=== PATIENT | female | born 1940 | race Caucasian/White ===

== ENCOUNTER 2016-02-18 18:08 | Emergency (ER) | payer OTHER ==
--- NOTE | 2016-02-18 19:15 | DIAGNOSTIC IMAGING REPORT ---
PROCEDURE: XR CHEST 2 VIEW INDICATION: GENERALIZED CONFUSION TECHNIQUE: PA and lateral views. COMPARISON: Compared to chest x-ray on 11/10/2012. FINDINGS: Lungs are clear. Heart and mediastinum are normal. There are mild to moderate degenerative changes of the thoracic spine. IMPRESSION: 1. Negative chest.
--- NOTE | 2016-02-18 21:13 | ED NURSING NOTES ---
Clinical Report - Nurses [facility] [address] [place] [address] 02/18/2016 18:09 Patient: EMORY MIRANDA TRIAGE Triage time 1823 PM. Chief Complaint: (confusion, headache, nausea). --18:24 Jordy Walton R.N. 18:16 02/18/16. BP: 174/71. HR: 68. RR: 18. O2 saturation: 97%. Temp: 98.1 F (oral). Pain level now: 10/27. --18:24 Jordy Walton R.N. Alert. No acute distress. HENRY COMA SCORE: Henry Coma Scale: 15- eyes open spontaneously (4); best verbal response- oriented x 4 (5); best motor response- obeys commands (6). --18:24 Jordy Walton R.N. Weight: 90.7 kg estimated. Height/Length: 65 inches Estimated. BMI: 33.3. --21:27 Calli Louis. Medications HumuLIN N Subcutaneous 120units. Hydrocodone-Acetaminophen Oral 5 mg/500 mg, as needed. --18:18 Jordy Walton R.N. Lasix Oral, as needed. Lisinopril Oral 20 mg. Lopressor Oral 150 mg. Procardia Oral 60 mg. --18:18 Jordy Walton R.N. Digoxin Oral. --18:19 Jordy Walton R.N. Potassimin Oral. --19:19 Jordy Walton R.N. Bumetanide Oral. --19:19 Jordy Walton R.N. Spironolactone Oral. --19:19 Jordy Walton R.N. Allergies No Known Drug Allergy. --18:18 Jordy Walton R.N. History Arrived by private vehicle, and accompanied by family. Onset. (about 3 days ago). ( Patient presents to the ED with symptoms of headache and nausea x3 days. Patient states that she was watching the football game today and around the 4th quarter started having trouble "finding my words."). Treatment DIVORCE ATTORNEY: None. SOCIAL HX: Never smoker. FALL RISK ASSESSMENT: Fall risk assessment completed. No fall risk identified. NUTRITIONAL RISK ASSESSMENT: The nutritional risk assessment revealed no deficiencies. FUNCTIONAL ASSESSMENT: Functional assessment: no impairments noted. LEARNING NEEDS ASSESSMENT: The learning needs assessment revealed no barriers. SKIN INTEGRITY ASSESSMENT: Skin integrity risk assessment completed. No skin integrity risk identified. --18:24 Jordy Walton R.N. PROBLEMS: Pneumonia. Changed Mental Status. Chronic ear infections. Hypertension. Diabetes Mellitus. Back Pain. --18:20 Jordy Walton R.N. CVA - Cerebrovascular Accident [RuleOut]. --18:20 Jordy Walton R.N. ADDITIONAL SURGERIES: Back Surgery. Carpal Tunnel Surgery. Hysterectomy. Shoulder Surgery. Vaginal cyst removal. --18:20 Jordy Walton R.N. PHYSICAL ASSESSMENT Ambulatory to room. GENERAL / NEURO / PSYCH: Alert. Oriented X 4. Appears in no acute distress. Decreased awareness. ( confusion, expressive aphasia). HEENT: Pupils equal, round and reactive to light. No facial asymmetry noted. Mucous membranes are pink. RESPIRATORY: Respirations not labored. Chest nontender. Breath sounds within normal limits. CVS: Normal sinus rhythm noted. Capillary refill less than 2 seconds. Pulses within normal limits. GI / : Abdomen soft and nontender and normal bowel sounds. SKIN: Skin intact. Skin is warm and dry. Normal skin turgor. --18:24 Jordy Walton R.N. GENERAL / NEURO / PSYCH: Awake. Oriented X 4. Alert. Speech normal. Mood/affect normal. No cerebellar findings. Moves all extremities equally. No motor deficit. No sensory deficit. NIH Stroke Scale: score 1. Performed at 1816 PM. Level of Consciousness: alert (0). LOC Questions: both (0). LOC Commands: both (0). Best gaze: normal (0). Visual field loss: none (0). Facial palsy: normal (0). Motor arm: no drift right arm (0) and no drift left arm (0). Motor leg: no drift right leg (0) and no drift left leg (0). Limb ataxia: none (0). Sensory loss: none (0). Aphasia: mild to moderate (1). Dysarthria: normal (0). Extinction and inattention: none (0). HEENT: Pupils equal, round and reactive to light. --19:16 Jordy Walton R.N. NURSING PROGRESS NOTES 18:47 02/18/2016 Site #1 started via IV in the right antecubital space with an 18g angiocath; two attempts. Blood drawn: rainbow set. --18:47 Jordy Walton R.N. 18:51 02/18/2016 Zofran (Ondansetron HCl) IVP 4 mg given over 2 minute(s) via site #1. Allergies verified and confirmed 5 rights. IV patency established. IV site checked: no pain, redness, or swelling. IV flushed thoroughly pre- and post-medication administration. IVP given by RN. --18:52 Jordy Walton R.N. ( Patient vomited x1. IV Zofran Administered). --18:52 Jordy Walton R.N. Care transferred and report received (Jordy). --19:15 Calli Louis 19:14 02/18/16. BP: 178/44. HR: 64. RR: 20. O2 saturation: 98%. --19:15 Calli Louis 8 fr in/out catheterization. During procedure hand hygiene observed and sterile equipment and aseptic technique used. She tolerated procedure well. Checked patient name and birthdate: patient confirmed. Instructions provided to collect clean catch urine and patient verbalized understanding urine collected with return of yellow-colored clear urine; odor is normal; sample sent to lab for urinalysis. Specimen labeled in the presence of the patient. Call light placed in reach. Side rails up x 1. --19:18 Jordy Walton R.N. Portable chest x-ray. --19:18 Jordy Walton R.N. 19:22 02/18/2016 Morphine IVP 4 mg given over 1 minute(s) via site #1. Allergies verified, confirmed 5 rights and sedative warning given to the patient and patient's family. IV patency established. IV site checked: no pain, redness, or swelling. IV flushed thoroughly pre- and post-medication administration. IVP given by RN. --19:22 Calli Louis 19:34 02/18/16. ( Patient oxygen down to 86% on RA. 2 Liters of oxygen applied. Patient reports a decrease in headache and nausea. Patient having some difficulty finding appropriate words when speaking. Provider aware of patient condition. Patient and family have no complaints at this time.). --19:34 Calli Louis 20:08 02/18/16. BP: 146/55. HR: 65. RR: 20. O2 saturation: 100% on nasal cannula at 2 liters/minute. Pain level now: 08/26. --20:09 Calli Louis ( Patient states headaches is coming back). --20:09 Calli Louis 20:21 02/18/2016 Benadryl (DiphenhydrAMINE HCl) IVP 25 mg given over 1 minute(s) via site #1. Allergies verified, confirmed 5 rights and sedative warning given to the patient and patient's family. IV patency established. IV site checked: no pain, redness, or swelling. IV flushed thoroughly pre- and post-medication administration. IVP given by RN. --20:21 Calli Louis 20:21 02/18/2016 Toradol IVP 30 mg given over 1 minute(s) via site #1. Allergies verified and confirmed 5 rights. IV patency established. IV site checked: no pain, redness, or swelling. IV flushed thoroughly pre- and post-medication administration. IVP given by RN. --20:21 Calli Louis Reassessment after medication administered. ( Patient feeling somewhat better.). --20:59 Calli Louis 20:58 02/18/16. BP: 172/58. HR: 59. RR: 20. O2 saturation: 100% on nasal cannula at 2 liters/minute. Pain level now: 07/27. --20:59 Calli Louis. DISPOSITION / DISCHARGE 21:20 02/18/16. BP: 161/55. HR: 65. RR: 20. O2 saturation: 100% on room air. Temp: 97.9 F (oral). Pain level now: 07/27. --21:22 Calli Louis 21:17 02/18/2016 Site #1 removed upon discharge. Catheter intact. Bandaid applied. --21:22 Calli Louis 21:22 02/18/16. Condition at departure: stable. No learning barriers present. Discharge instructions provided and reviewed with the patient and family. Reviewed warnings (No driving while taking sedative medications). Reviewed medication(s) side effects, precautions, dosing and course information. Prescription(s) given to the patient. Reviewed diet. Patient and family verbalized understanding. Written instructions provided in [place]. ( Follow up with PCP in three days. Reviewed stroke type symptoms with patient and family. Advised them to return if any symptoms appear.). The patient was discharged by the physician. She was discharged home and accompanied by family. She left the Emergency Department ambulatory and via private vehicle. Family member driving. --:22 Calli Louis. Locked/Released at 02/18/2016 21:28 by Calli Louis,
--- NOTE | 2016-02-18 21:13 | ED CLINICAL REPORT ---
Clinical Report - Physicians/Mid Levels [facility] [address] [place] [address] 02/18/2016 18:09 Patient: EMORY MIRANDA Arrived- By ambulance. Historian- patient. HISTORY OF PRESENT ILLNESS Chief Complaint: CHANGED MENTAL STATUS. This started 3 days ago, is still present and patient was last known well (3 days ago). The patient has been confused. (headache). The patient was not found unresponsive. No alcohol recently or recent drug use. No weakness, numbness or recent fall. No difficulty walking. Usually is alert and oriented X3 and usually has normal mobility. Similar symptoms previously: None. Recent medical care: Not recently seen/assessed. REVIEW OF SYSTEMS No fever, head injury, dizziness, blurred vision or sore throat. No abdominal pain or skin rash. She has had a headache. All systems otherwise negative, except as recorded above. PAST HISTORY See nurses notes. Medications: Spironolactone Oral. Bumetanide Oral. Potassimin Oral. Digoxin Oral. Lasix Oral, as needed. Lisinopril Oral 20 mg. Lopressor Oral 150 mg. Procardia Oral 60 mg. HumuLIN N Subcutaneous 120units. Hydrocodone-Acetaminophen Oral 5 mg/500 mg, as needed. Allergies: No Known Drug Allergy. SOCIAL HISTORY Never smoker. No alcohol use or drug use. Is a local resident. FAMILY HISTORY Negative. ADDITIONAL NOTES The nursing notes have been reviewed. PHYSICAL EXAM Vital Signs: 02/18/2016 18:16 BP: 174/71. HR: 68. RR: 18. O2 saturation: 97%. Temp: 98.1 F. Pain level now: 9/10. Blood pressure normal. Oxygen saturation normal. Appearance: Alert. No acute distress. Head: Head atraumatic. Eyes: Pupils equal, round and reactive to light. ENT: Normal ENT inspection. Airway intact. Moist mucous membranes. Pharynx normal. Neck: Normal inspection. Neck supple. No meningeal signs. CVS: Normal heart rate and rhythm. Heart sounds normal. Pulses normal. Respiratory: No respiratory distress. Breath sounds normal. Abdomen: Soft and nontender. Back: Normal inspection. Skin: Skin warm and dry. Normal skin color. No rash. Normal skin turgor. Extremities: Extremities exhibit normal ROM. No lower extremity edema. Neuro: Alert. Oriented X 3. No alteration in mental status. Not disoriented. Alertness is not decreased. No aphasia. Mood/affect normal. Speech normal. No dysphasia or dysarthria. Cranial nerves normal (as tested). No cerebellar findings. No motor deficit. No sensory deficit. Reflexes normal. (normal finger to nose and heel to wick). LABS, X-RAYS, AND EKG Chest X-ray: Normal lung markings present. Normal heart size. No infiltrate. Views: PA and lateral. The X-rays were independently viewed by me and interpreted contemporaneously by me. Laboratory Tests: UA-Culture if indicated: (GUSTAVO: 02/18/2016 19:08) ( MsgRcvd 02/18/2016 19:33) Final results Test Result Flag Units (Reference) URINE COLOR YELLOW URINE APPEARANCE CLEAR URINE GLUCOSE TRACE (NEGATIVE) URINE BILIRUBIN NEGATIVE (NEGATIVE) URINE KETONE NEGATIVE (NEGATIVE) URINE SPECIFIC GRAVITY >= 1.030 (1.010-1.030) URINE PH 5.5 (5.0-8.0) URINE PROTEIN 1+ (NEGATIVE) URINE UROBILINOGEN 0.2 EU/dL (0.2-1.0) URINE NITRITE NEGATIVE (NEGATIVE) URINE BLOOD TRACE-INTACT (NEGATIVE) URINE LEUK ESTERASE NEGATIVE (NEGATIVE) URINE RBC 1-3 rbc/hpf (0-1) URINE WBC 1-3 wbc/hpf (0-1) URINE EPITHELIAL CELLS 3-5 EPI/hpf (0-5) URINE BACTERIA MODERATE (2+ TO 3+) (NONE SEEN) URINE COMMENT CULTURE INDICATED 2+ AMORPHOUSURINE CULTURES ARE SET-UP BASED ON THE FOLLOWING CRITERIA:POSITIVE NITRITEPOSITIVE LEUKOCYTE ESTERASEGREATER THAN 10 WHITE BLOOD CELLSMODERATE (2+) OR GREATER BACTERIA CBC w Diff: (GUSTAVO: 02/18/2016 18:26) ( MsgRcvd 02/18/2016 19:11) Final results Test Result Flag Units (Reference) WHITE BLOOD COUNT 17.2 H K/uL (4.5-11.5) RED BLOOD COUNT 5.45 H M/uL (4.00-5.20) HEMOGLOBIN 15.4 gm/dL (12.0-16.0) HEMATOCRIT 46.4 H % (36.0-46.0) MEAN CELL VOLUME 85 fL (80-100) MEAN CORPUSCULAR HGB 28 pg (26-34) MEAN CORPUSCULAR HGB CONC 33 g/dL (31-37) RED CELL DISTRIBUTION WIDTH 13.0 % (11.6-14.8) PLATELET COUNT 247 K/uL (150-400) NEUTROPHIL % 77.1 H % (50-75) LYMPH % 16.1 L % (25-40) MONO % 4.9 % (3-14) EOSINOPHIL % 1.7 % (0-4) BASOPHIL % 0.2 % (0-2) PT with INR: (GUSTAVO: 02/18/2016 18:26) ( [facility] 02/18/2016 18:49) Final results Test Result Flag Units (Reference) INR 0.9 (0.8-1.2) Low Intensity Therapy: INR 1.5-2.0 PT range 18.5-23.1Mod.Intensity Therapy: INR 2.0-3.0 PT range 23.1-31.5High Intensity Therapy: INR 2.5-3.5 PT range 27.4-35.5High Intensity Therapy 2: INR 3.0-4.0 PT range 31.5-39.3 Digoxin Level: (GUSTAVO: 02/18/2016 18:20) ( [facility] 02/18/2016 20:03) Final results Test Result Flag Units (Reference) DIGOXIN 1.2 ng/mL (0.9-2.0) CMP: (GUSTAVO: 02/18/2016 18:26) ( [facility] 02/18/2016 18:53) Final results Test Result Flag Units (Reference) GLUCOSE 184 H mg/dL (70-110) BUN 20 H mg/dL (7-18) CREATININE 1.0 mg/dL (0.6-1.3) Estimated GFR 57.76 mL/min Estimated GFR- >60 mL/min Note: Persistent reduction over 3 months in eGFR<60 mL/min/1.73 m2 defines CKD. Patients with eGFR values>=60 mL/min/1.73 m2 may also have CKD if evidence ofpersistent proteinuria. Additional information may be foundat www.kidney.org. SODIUM 138 mmol/L (136-145) POTASSIUM 4.4 mmol/L (3.5-5.1) CHLORIDE 101 mmol/L (98-107) CARBON DIOXIDE 28 mmol/L (21-32) CALCIUM 9.3 mg/dL (8.5-10.1) TOTAL PROTEIN 7.5 g/dL (6.4-8.2) ALBUMIN 3.5 g/dL (3.3-5.0) BILIRUBIN, TOTAL 0.5 mg/dL (0.0-1.0) ALKALINE PHOSPHATASE 93 U/L (46-116) AST (SGOT) 21 U/L (15-37) ALT (SGPT) 25 U/L (12-78) LIPASE 56 L U/L (73-393) Culture, Urine: (GUSTAVO: 02/18/2016 19:08) ( MsgRcvd 02/20/2016 11:54) Final results Test Result Flag Units (Reference) CULTURE, URINE DATE: 02/20/16 NO GROWTH AT:: NO GROWTH AT 2 DAYS PRELIM REPORT: FINAL REPORT . PROGRESS AND PROCEDURES Course of Care: the patient is a 75 yo female presenting for evaluation of 3 days of headache and difficulty finding words. Patient is in no acute distress. Neuro exam is completely non-focal on my examination. Patient without difficulty naming objects and is A X O x 4. Will evaluation for possible causes for symptoms including metabolic or infectious etiologies. Do not feel patient had a recent stroke. Do not feel work up for stroke warranted at this time. Patient's work up shows no acute abnormalities. she is speaking in fluid sentences and is in no acute distress. Patient with headache and medications provided given unremarkable workup. Do not feel patient has increased ICP, mass, or SAH. UA with epithelial cells. likely bacteria on UA contaminate. WIll await cultures. Patient reevaluated after work up. Patient states she feels much better and is comfortable returning home. DO not feel patient needs to be admitted or require further ED work up. Patient is in no acute distress, is non-toxic, and has a normal exam. Discussed with patient work up, diagnosis, home care, follow up, and return precautions. All questions answered. Patient expressed understanding of these instructions and was agreeable to them. Not completed after cultures from UA returned. NO growth. Do not feel patient has UA. Disposition: Discharged. Condition: good. CLINICAL IMPRESSION Acute mental status change with confusion. Acute headache (frontal). Mild leukocytosis. INSTRUCTIONS Warnings: GENERAL WARNINGS: Return or contact your physician immediately if your condition worsens or changes unexpectedly, if not improving as expected, or if other problems arise. Specifically return if pain, vomiting, bleeding, breathing difficulty or fever. Your Current Medications: CONTINUE TAKING THE FOLLOWING MEDICATIONS: Bumetanide Oral. Digoxin Oral. HumuLIN N Subcutaneous : 120units. Hydrocodone-Acetaminophen Oral : 5 mg/500 mg, prn. Lasix Oral : prn. Lisinopril Oral : 20 mg. Lopressor Oral : 150 mg. Potassimin Oral. Procardia Oral : 60 mg. Spironolactone Oral. Prescription Medications: Tramadol 50 mg: take 1 orally every 8 hours as needed for pain. Dispense twenty (20). No refills. Zofran ODT 4 mg: take 1 orally every 8 hours as needed for nausea and vomiting. Dispense ten (10). No refill. Substitution is permissible. Fioricet: take 1 orally every 6 hours as needed for pain or headache. Dispense twenty (20). No refills. Substitution is permissible. Follow-up: Return to the emergency department as needed. Follow up with your doctor in three days. Reason for referral: recheck today's concerns. Summary of care provided to patient and family via paper. Screening today revealed the patient's blood pressure to be in the normal range. The patient should follow up with a primary care provider for blood pressure management. Understanding of the discharge instructions verbalized by patient. (Electronically signed by Henry Parada Dr. 02/24/2016 15:18)
--- NOTE | 2016-02-18 21:13 | ED ORDER SUMMARY ---
..... Patient: EMORY MIRANDA OrderSheet [facility] VisitID: [id number] [place] [address] 75y, F Registration Date/Time: 02/18/2016 ORDER SHEET Weight: 90.7 kg (estimated) Allergies: No Known Drug Allergy GENERAL ORDERS: Chest 2V Urgent (18:31 02/18/2016 Chelo Morales) (Ack 18:37 NHouse ER Tech1) (18:46 Harsha) CBC w Diff Urgent (18:32 02/18/2016 Chelo Morales) (Ack 18:37 NHouse ER Tech1) (18:47 HOShaughnessy R.N.) CMP Urgent (18:32 02/18/2016 Chelo Morales) (Ack 18:37 NHouse ER Tech1) (18:47 HOShaughnessy R.N.) UA-Culture if indicated Urgent (18:32 02/18/2016 Chelo Morales) (Ack 18:37 NHouse ER Tech1) (20:01 HSoule) PT with INR Urgent (18:32 02/18/2016 Chelo Morales) (Ack 18:37 NHouse ER Tech1) (18:47 HOShaughnessy R.N.) Lipase Urgent (18:32 02/18/2016 Chelo Morales) (Ack 18:37 NHouse ER Tech1) (18:47 HOShaughnessy R.N.) Pulse oximeter (18:32 02/18/2016 Chelo Morales) (19:12 HSoule) Digoxin Level Urgent (19:43 02/18/2016 Chelo Morales) (Ack 19:45 NHouse ER Tech1) (19:45 NHouse ER Tech1) MEDICATION ORDERS: Phenergan IV 25 mg (HIGH ALERT MEDICATION, NOW) (20:10 02/18/2016 Chelo Morales) (Hold 20:20 HSoule) (Cancelled: Patient [id number] HSoule) IV FLUIDS: Morphine IV 4 mg (HIGH ALERT MEDICATION, NOW) (18:31 02/18/2016 Chelo Morales) (Ack 19:14 HSoule) (19:22 HSoule) Zofran IV 4 mg (NOW) (18:31 02/18/2016 Chelo Morales) (18:52 HOShaughmahi R.N.) IV Saline Lock (18:32 02/18/2016 Chelo Morales) (18:47 HOSkhurram R.N.) Benadryl IV 25 mg (NOW) (20:11 02/18/2016 Chelo Morales) (20:21 HSoule) Toradol IV 30 mg (NOW) (20:11 02/18/2016 Chelo Morales) (20:21 HSoule) ORDER SHEET NOTES: [Electronically signed by Calli Louis (21:28 02/18/2016)] [Electronically signed by Henry Parada Dr. (15:18 02/24/2016)] [Electronically locked/signed by Calli Louis (21:28 02/18/2016)]
--- NOTE | 2016-02-18 21:13 | ED ORDER SUMMARY ---
..... Patient: EMORY MIRANDA OrderSheet [facility] VisitID: [id number] [place] [address] 75y, F Registration Date/Time: 02/18/2016 ORDER SHEET Weight: 90.7 kg (estimated) Allergies: No Known Drug Allergy GENERAL ORDERS: Chest 2V Urgent (18:31 02/18/2016 Chelo Morales) (Ack 18:37 NHouse ER Tech1) (18:46 Harsha) CBC w Diff Urgent (18:32 02/18/2016 Chelo Morales) (Ack 18:37 NHouse ER Tech1) (18:47 HOShaughnessy R.N.) CMP Urgent (18:32 02/18/2016 Chelo Morales) (Ack 18:37 NHouse ER Tech1) (18:47 HOShaughnessy R.N.) UA-Culture if indicated Urgent (18:32 02/18/2016 Chelo Morales) (Ack 18:37 NHouse ER Tech1) (20:01 HSoule) PT with INR Urgent (18:32 02/18/2016 Chelo Morales) (Ack 18:37 NHouse ER Tech1) (18:47 HOShaughnessy R.N.) Lipase Urgent (18:32 02/18/2016 Chelo Morales) (Ack 18:37 NHouse ER Tech1) (18:47 HOShaughnessy R.N.) Pulse oximeter (18:32 02/18/2016 Chelo Morales) (19:12 HSoule) Digoxin Level Urgent (19:43 02/18/2016 Chelo Morales) (Ack 19:45 NHouse ER Tech1) (19:45 NHouse ER Tech1) MEDICATION ORDERS: Phenergan IV 25 mg (HIGH ALERT MEDICATION, NOW) (20:10 02/18/2016 Chelo Morales) (Hold 20:20 HSoule) (Cancelled: Patient [id number] HSoule) IV FLUIDS: Morphine IV 4 mg (HIGH ALERT MEDICATION, NOW) (18:31 02/18/2016 Chelo Morales) (Ack 19:14 HSoule) (19:22 HSoule) Zofran IV 4 mg (NOW) (18:31 02/18/2016 Chelo Morales) (18:52 HOShaughmahi R.N.) IV Saline Lock (18:32 02/18/2016 Chelo Morales) (18:47 HOSkhurram R.N.) Benadryl IV 25 mg (NOW) (20:11 02/18/2016 Chelo Morales) (20:21 HSoule) Toradol IV 30 mg (NOW) (20:11 02/18/2016 Chelo Morales) (20:21 HSoule) ORDER SHEET NOTES: [Electronically signed by Calli Louis (21:28 02/18/2016)] [Electronically signed by Henry Parada Dr. (15:18 02/24/2016)] [Electronically locked/signed by Calli Louis (21:28 02/18/2016)]
--- NOTE | 2016-02-24 15:18 | ED DISCHARGE INSTRUCTIONS ---
Patient: EMORY MIRANDA General Instructions [facility] VisitID: [id number] [place] [address] 75y, F Registration Date/Time: 02/18/2016 Acute mental status change with confusion. Acute headache (frontal). Mild leukocytosis. INSTRUCTIONS Warnings: GENERAL WARNINGS: Return or contact your physician immediately if your condition worsens or changes unexpectedly, if not improving as expected, or if other problems arise. Specifically return if pain, vomiting, bleeding, breathing difficulty or fever. Your Current Medications: CONTINUE TAKING THE FOLLOWING MEDICATIONS: Bumetanide Oral. Digoxin Oral. HumuLIN N Subcutaneous : 120units. Hydrocodone-Acetaminophen Oral : 5 mg/500 mg, prn. Lasix Oral : prn. Lisinopril Oral : 20 mg. Lopressor Oral : 150 mg. Potassimin Oral. Procardia Oral : 60 mg. Spironolactone Oral. Prescription Medications: Tramadol 50 mg: take 1 orally every 8 hours as needed for pain. Dispense twenty (20). No refills. Zofran ODT 4 mg: take 1 orally every 8 hours as needed for nausea and vomiting. Dispense ten (10). No refill. Substitution is permissible. Fioricet: take 1 orally every 6 hours as needed for pain or headache. Dispense twenty (20). No refills. Substitution is permissible. Follow-up: Return to the emergency department as needed. Follow up with your doctor in three days. Reason for referral: recheck today's concerns. Summary of care provided to patient and family via paper. Screening today revealed the patient's blood pressure to be in the normal range. The patient should follow up with a primary care provider for blood pressure management. Understanding of the discharge instructions verbalized by patient. ADDITIONAL INFORMATION Confusion Confusion is a change in a persons ability to think clearly. There may be trouble recognizing familiar people and places, or knowing what day it is. Memory, judgement and decision-making may also be affected. In severe cases there may be limited or no response to verbal commands. Confusion may occur suddenly or develop gradually over time. There are many injuries and medical conditions that can cause this problem. These include brain injury, side effect of medication, intoxication, withdrawal from drugs, infection, stroke, dementia,mental illness and other causes. The exam and testing today did not show the cause of this problem. Further testing will be needed. Specific treatment and hope for recovery depend on the cause of this symptom. Home Care: Be sure someone is with the confused person at all times. He/she should not be left alone or unsupervised. Keep medicines (prescription and [id number]) in a secure place, under the caregivers control. A person with confusion should not be allowed to take their own medicines.This needs to be supervised by the caregiver. Ways to help a person with confusion: Activities:Establish a daily routine. Change can be a source of stress for someone with confusion. Make a time schedule for common tasks such as: bathing, dressing, taking medicines, meals, going for walks, shopping, naps and bed time. Communication:Speak slowly and clearly with a gentle tone of voice. Use short simple words and sentences. Ask one question at a time. Do not interrupt, criticize or argue. Be calm and supportive. Use friendly facial expressions. Use pointing and touching to help communicate. If there has been loss of long-term memory, do not ask questions about past events. This would only cause frustration for the person. Behavioral tips:Use lists, signs, family photos, clocks and calendars as memory aids. Label cabinets and drawers. Try to distract, not confront, the patient. When he/she becomes frustrated or upset, redirect his/her attention to eating or some other activity of interest. Medical-Legal tips: If this proves to be a permanent condition, talk to your doctor and/or caterer helper about getting a Power of In House Cra for health care and for financial decisions. It is best to do this while the person can still sign legal documents and make his/yared own legal decisions. Otherwise, a court order will be required. Follow-Up with the patients doctor or as advised by our staff for further testing. Get Prompt Medical Attention if any of the following occur: Frequent falling Refusal to eat or drink Violent behavior or behavior becomes too difficult to manage at home Increased drowsiness, or failure to respond normally Increasing headache, nausea or repeated vomiting Numbness or weakness of the face, one arm or one leg Slurred speech, trouble speaking, walking or seeing Fainting spell, dizziness or seizure Unexplained fever over 100.4 F (38.0 C) oral Headache [Unspecified] The cause of your headache today is not clear, but it does not appear to be the sign of any serious illness. Under stress, some people tense the muscles of their shoulder, neck and scalp without knowing it. If this condition lasts long enough, a TENSION HEADACHE can occur. A MIGRAINE HEADACHE is caused by changes in blood flow to the brain. A migraine attack may be triggered by emotional stress, hormone changes during the menstrual cycle, oral contraceptives, alcohol use, certain foods containing tyramine, eye strain, weather changes, missing meals, lack of sleep or oversleeping. Other causes of headache include a viral illness with high fever, head injury with concussion, sinus, ear or throat infection, dental pain and TMJ (jaw joint) pain. More serious but less common causes of headache include stroke, brain hemorrhage, brain tumor, meningitis and encephalitis. Home Care: If you were given pain medicine for this headache, do not drive yourself home. Arrange for a ride, instead. When you get home, try to sleep. You should feel much better when you wake up. Apply heat to the back of your neck to relieve neck muscle spasm. Migraine headaches may respond best to an ice pack on the forehead or at the base of the skull. If you are having nausea or vomiting, follow a light diet until your headache is relieved. If you have a migraine type headache, use sunglasses when in the daylight or around bright indoor lighting until symptoms improve. Bright glaring light can worsen this kind of headache. Follow Up with your doctor if the headache is not better within the next 24 hours. If you have frequent headaches you should discuss a treatment plan with your primary care doctor. By being aware of the earliest signs of headache, and starting treatment right away, you may be able to stop the pain yourself. Get Prompt Medical Attention if any of the following occur: Worsening of your head pain or no improvement within 24 hours Repeated vomiting (unable to keep liquids down) Fever of 100.4F (38C) or higher, or as directed by your healthcare provider Stiff neck Extreme drowsiness, confusion or fainting Dizziness, vertigo (dizziness with spinning sensation) Weakness of an arm or leg or one side of the face Difficulty with speech or vision Tramadol Hydrochloride Oral tablet What is this medicine? TRAMADOL (TRA ma dole) is a pain reliever. It is used to treat moderate to severe pain in adults. How should I use this medicine? Take this medicine by mouth with a full glass of water. Follow the directions on the prescription label. If the medicine upsets your stomach, take it with food or milk. Do not take more medicine than you are told to take. Talk to your application development consultant regarding the use of this medicine in children. Special care may be needed. What side effects may I notice from receiving this medicine? Side effects that you should report to your doctor or health rn coronary care unit as soon as possible: allergic reactions like skin rash, itching or hives, swelling of the face, lips, or tongue breathing difficulties, wheezing confusion itching light headedness or fainting spells redness, blistering, peeling or loosening of the skin, including inside the mouth seizures Side effects that usually do not require medical attention (report to your doctor or health rn coronary care unit if they continue or are bothersome): constipation dizziness drowsiness headache nausea, vomiting What may interact with this medicine? Do not take this medicine with any of the following medications: MAOIs like Carbex, Eldepryl, Marplan, Nardil, and Parnate This medicine may also interact with the following medications: alcohol or medicines that contain alcohol antihistamines benzodiazepines bupropion carbamazepine or oxcarbazepine clozapine cyclobenzaprine digoxin furazolidone linezolid medicines for depression, anxiety, or psychotic disturbances medicines for migraine headache like almotriptan, eletriptan, frovatriptan, naratriptan, rizatriptan, sumatriptan, zolmitriptan medicines for pain like pentazocine, buprenorphine, butorphanol, meperidine, nalbuphine, and propoxyphene medicines for sleep muscle relaxants naltrexone phenobarbital phenothiazines like perphenazine, thioridazine, chlorpromazine, mesoridazine, fluphenazine, prochlorperazine, promazine, and trifluoperazine procarbazine warfarin What if I miss a dose? If you miss a dose, take it as soon as you can. If it is almost time for your next dose, take only that dose. Do not take double or extra doses. Where should I keep my medicine? Keep out of the reach of children. Store at room temperature between 15 and 30 degrees C (59 and 86 degrees F). Keep container tightly closed. Throw away any unused medicine after the expiration date. What should I tell my health care provider before I take this medicine? They need to know if you have any of these conditions: brain tumor depression drug abuse or addiction head injury if you frequently drink alcohol containing drinks kidney disease or trouble passing urine liver disease lung disease, asthma, or breathing problems seizures or epilepsy suicidal thoughts, plans, or attempt; a previous suicide attempt by you or a family member an unusual or allergic reaction to tramadol, codeine, other medicines, foods, dyes, or preservatives or trying to get breast-feeding What should I watch for while using this medicine? Tell your doctor or health rn coronary care unit if your pain does not go away, if it gets worse, or if you have new or a different type of pain. You may develop tolerance to the medicine. Tolerance means that you will need a higher dose of the medicine for pain relief. Tolerance is normal and is expected if you take this medicine for a long time. Do not suddenly stop taking your medicine because you may develop a severe reaction. Your body becomes used to the medicine. This does NOT mean you are addicted. Addiction is a behavior related to getting and using a drug for a non-medical reason. If you have pain, you have a medical reason to take pain medicine. Your doctor will tell you how much medicine to take. If your doctor wants you to stop the medicine, the dose will be slowly lowered over time to avoid any side effects. You may get drowsy or dizzy. Do not drive, use machinery, or do anything that needs mental alertness until you know how this medicine affects you. Do not stand or sit up quickly, especially if you are an older patient. This reduces the risk of dizzy or fainting spells. Alcohol can increase or decrease the effects of this medicine. Avoid alcoholic drinks. You may have constipation. Try to have a bowel movement at least every 2 to 3 days. If you do not have a bowel movement for 3 days, call your doctor or health rn coronary care unit. Your mouth may get dry. Chewing sugarless gum or sucking hard candy, and drinking plenty of water may help. Contact your doctor if the problem does not go away or is severe. Ondansetron Oral disintegrating tablet What is this medicine? ONDANSETRON (on DELL se barb) is used to treat nausea and vomiting caused by chemotherapy. It is also used to prevent or treat nausea and vomiting after surgery. How should I use this medicine? These tablets are made to dissolve in the mouth. Do not try to push the tablet through the foil backing. With dry hands, peel away the foil backing and gently remove the tablet. Place the tablet in the mouth and allow it to dissolve, then swallow. While you may take these tablets with water, it is not necessary to do so. Talk to your application development consultant regarding the use of this medicine in children. Special care may be needed. What side effects may I notice from receiving this medicine? Side effects that you should report to your doctor or health rn coronary care unit as soon as possible: allergic reactions like skin rash, itching or hives, swelling of the face, lips, or tongue breathing problems dizziness fast or irregular heartbeat feeling faint or lightheaded, falls fever and chills swelling of the hands and feet tightness in the chest Side effects that usually do not require medical attention (report to your doctor or health rn coronary care unit if they continue or are bothersome): constipation or diarrhea headache What may interact with this medicine? Do not take this medicine with any of the following medications: -apomorphine -cisapride -dofetilide -dronedarone -pimozide -thioridazine -ziprasidone This medicine may also interact with the following medications: -carbamazepine -phenytoin -rifampicin -tramadol -other medicines that prolong the QT interval (cause an abnormal heart rhythm) What if I miss a dose? If you miss a dose, take it as soon as you can. If it is almost time for your next dose, take only that dose. Do not take double or extra doses. Where should I keep my medicine? Keep out of the reach of children. Store between 2 and 30 degrees C (36 and 86 degrees F). Throw away any unused medicine after the expiration date. What should I tell my health care provider before I take this medicine? They need to know if you have any of these conditions: heart disease history of irregular heartbeat liver disease low levels of magnesium or potassium in the blood an unusual or allergic reaction to ondansetron, granisetron, other medicines, foods, dyes, or preservatives or trying to get breast-feeding What should I watch for while using this medicine? Check with your doctor or health rn coronary care unit as soon as you can if you have any sign of an allergic reaction. Butalbital, Acetaminophen, Caffeine Oral tablet What is this medicine? ACETAMINOPHEN; BUTALBITAL; CAFFEINE (a set a PJ mayra fen; byoo DELMER bi delmer; KAF een) is a pain reliever. It is used to treat tension headaches. How should I use this medicine? Take this medicine by mouth with a full glass of water. Follow the directions on the prescription label. If the medicine upsets your stomach, take the medicine with food or milk. Do not take more than you are told to take. Talk to your application development consultant regarding the use of this medicine in children. Special care may be needed. What side effects may I notice from receiving this medicine? Side effects that you should report to your doctor or health rn coronary care unit as soon as possible: allergic reactions like skin rash, itching or hives, swelling of the face, lips, or tongue breathing problems confusion feeling faint or lightheaded, falls redness, blistering, peeling or loosening of the skin, including inside the mouth seizure stomach pain yellowing of the eyes or skin Side effects that usually do not require medical attention (report to your doctor or health rn coronary care unit if they continue or are bothersome): constipation nausea, vomiting What may interact with this medicine? alcohol or medicines that contain alcohol antidepressants, especially MAOIs like isocarboxazid, phenelzine, tranylcypromine, and selegiline antihistamines benzodiazepines carbamazepine isoniazid medicines for pain like pentazocine, buprenorphine, butorphanol, nalbuphine, tramadol, and propoxyphene muscle relaxants naltrexone phenobarbital, phenytoin, and fosphenytoin phenothiazines like perphenazine, thioridazine, chlorpromazine, mesoridazine, fluphenazine, prochlorperazine, promazine, and trifluoperazine voriconazole What if I miss a dose? If you miss a dose, take it as soon as you can. If it is almost time for your next dose, take only that dose. Do not take double or extra doses. Where should I keep my medicine? Keep out of the reach of children. This medicine can be abused. Keep your medicine in a safe place to protect it from theft. Do not share this medicine with anyone. Selling or giving away this medicine is dangerous and against the law. Store at room temperature between 15 and 30 degrees C (59 and 86 degrees F). Keep container tightly closed. Protect from light. Throw away any unused medicine after the expiration date. What should I tell my health care provider before I take this medicine? They need to know if you have any of these conditions: drink more than 3 alcohol-containing drinks per day drug abuse or addiction heart or circulation problems kidney disease or problems going to the bathroom liver disease lung disease, asthma, or breathing problems porphyria an unusual or allergic reaction to acetaminophen, butalbital or other barbiturates, caffeine, other medicines, foods, dyes, or preservatives or trying to get breast-feeding What should I watch for while using this medicine? Tell your doctor or health rn coronary care unit if your pain does not go away, if it gets worse, or if you have new or a different type of pain. You may develop tolerance to the medicine. Tolerance means that you will need a higher dose of the medicine for pain relief. Tolerance is normal and is expected if you take the medicine for a long time. Do not suddenly stop taking your medicine because you may develop a severe reaction. Your body becomes used to the medicine. This does NOT mean you are addicted. Addiction is a behavior related to getting and using a drug for a non-medical reason. If you have pain, you have a medical reason to take pain medicine. Your doctor will tell you how much medicine to take. If your doctor wants you to stop the medicine, the dose will be slowly lowered over time to avoid any side effects. You may get drowsy or dizzy when you first start taking the medicine or change doses. Do not drive, use machinery, or do anything that may be dangerous until you know how the medicine affects you. Stand or sit up slowly. Do not take other medicines that contain acetaminophen with this medicine. Always read labels carefully. If you have questions, ask your doctor or pharmacist. If you take too much acetaminophen get medical help right away. Too much acetaminophen can be very dangerous and cause liver damage. Even if you do not have symptoms, it is important to get help right away. You have been given the following additional information: Confusion Headache, Unspecified Tramadol Hydrochloride Oral tablet Ondansetron Oral disintegrating tablet Butalbital, Acetaminophen, Caffeine Oral tablet (Electronically signed by Henry Parada Dr. 02/24/2016 15:18)
--- NOTE | 2016-02-24 15:18 | ED MAR SUMMARY ---
..... Medication Administration Record [facility] [address] [place] [address] Patient: EMORY MIRANDA Visit ID: [id number] 75y, F Weight: 90.7 kg Height/Length: 65 in BMI: 33.3 ALLERGIES: No Known Drug Allergy Given 18:51 02/18/2016 Jordy Walton R.N. Medication Administered: ZOFRAN [IVP] (ONDANSETRON HCL), Dose: 4 mg IVP over 2 minute(s), Site: #1 right AC. Medication Ordered: Zofran IV 4 mg (NOW). Given 19:22 02/18/2016 Calli Louis, Medication Administered: MORPHINE [IVP], Dose: 4 mg IVP over 1 minute(s), Site: #1 right AC. Medication Ordered: Morphine IV 4 mg (HIGH ALERT MEDICATION, NOW). Given :02/18/2016 Calli Louis, Medication Administered: BENADRYL [IVP] (DIPHENHYDRAMINE HCL), Dose: 25 mg IVP over 1 minute(s), Site: #1 right AC. Medication Ordered: Benadryl IV 25 mg (NOW). Given :02/18/2016 Calli Louis, Medication Administered: TORADOL [IVP], Dose: 30 mg IVP over 1 minute(s), Site: #1 right AC. Medication Ordered: Toradol IV 30 mg (NOW).
--- NOTE | 2016-02-24 15:18 | ED MAR SUMMARY ---
..... Medication Administration Record [facility] [address] [place] [address] Patient: EMORY MIRANDA Visit ID: [id number] 75y, F Weight: 90.7 kg Height/Length: 65 in BMI: 33.3 ALLERGIES: No Known Drug Allergy Given 18:51 02/18/2016 Jordy Walton R.N. Medication Administered: ZOFRAN [IVP] (ONDANSETRON HCL), Dose: 4 mg IVP over 2 minute(s), Site: #1 right AC. Medication Ordered: Zofran IV 4 mg (NOW). Given 19:22 02/18/2016 Calli Louis, Medication Administered: MORPHINE [IVP], Dose: 4 mg IVP over 1 minute(s), Site: #1 right AC. Medication Ordered: Morphine IV 4 mg (HIGH ALERT MEDICATION, NOW). Given :02/18/2016 Calli Louis, Medication Administered: BENADRYL [IVP] (DIPHENHYDRAMINE HCL), Dose: 25 mg IVP over 1 minute(s), Site: #1 right AC. Medication Ordered: Benadryl IV 25 mg (NOW). Given :02/18/2016 Calli Louis, Medication Administered: TORADOL [IVP], Dose: 30 mg IVP over 1 minute(s), Site: #1 right AC. Medication Ordered: Toradol IV 30 mg (NOW).
--- NOTE | 2016-02-24 15:18 | ED MED RECONCILIATION SUMMARY ---
Patient: EMORY MIRANDA Medication Reconciliation Report [facility] VisitID: [id number] [place] [address] 75y, F Registration Date/Time: 02/18/2016 Weight: 90.7 kg Height/Length: 65 in. BMI: 33.3 ALLERGIES: No Known Drug Allergy The patient's Home Medications are listed below: CONTINUE TAKING THE FOLLOWING MEDICATIONS: Bumetanide Oral Digoxin Oral HumuLIN N Subcutaneous 120units Hydrocodone-Acetaminophen Oral 5 mg/500 mg Lasix Oral Lisinopril Oral 20 mg Lopressor Oral 150 mg Potassimin Oral Procardia Oral 60 mg Spironolactone Oral The source(s) of the original Home Medication information: Not obtained. The following Medications were given to the patient in the Emergency Department: Zofran [IVP] IVP 4 mg, administered: 02/18/2016 6:51:00 PM Morphine [IVP] IVP 4 mg, administered: 02/18/2016 7:22:00 PM Benadryl [IVP] IVP 25 mg, administered: 02/18/2016 8:21:00 PM Toradol [IVP] IVP 30 mg, administered: 02/18/2016 8:21:00 PM The following Medications were prescribed to the patient: Tramadol 50 mg: take 1 orally every 8 hours as needed for pain. Dispense twenty (20). No refills. -- Henry Parada Dr. Zofran ODT 4 mg: take 1 orally every 8 hours as needed for nausea and vomiting. Dispense ten (10). No refill. Substitution is permissible. -- Henry Parada Dr. Fioricet: take 1 orally every 6 hours as needed for pain or headache. Dispense twenty (20). No refills. Substitution is permissible. -- Henry Parada Dr.
--- NOTE | 2016-02-24 15:18 | ED MED RECONCILIATION SUMMARY ---
Patient: EMORY MIRANDA Medication Reconciliation Report [facility] VisitID: [id number] [place] [address] 75y, F Registration Date/Time: 02/18/2016 Weight: 90.7 kg Height/Length: 65 in. BMI: 33.3 ALLERGIES: No Known Drug Allergy The patient's Home Medications are listed below: CONTINUE TAKING THE FOLLOWING MEDICATIONS: Bumetanide Oral Digoxin Oral HumuLIN N Subcutaneous 120units Hydrocodone-Acetaminophen Oral 5 mg/500 mg Lasix Oral Lisinopril Oral 20 mg Lopressor Oral 150 mg Potassimin Oral Procardia Oral 60 mg Spironolactone Oral The source(s) of the original Home Medication information: Not obtained. The following Medications were given to the patient in the Emergency Department: Zofran [IVP] IVP 4 mg, administered: 02/18/2016 6:51:00 PM Morphine [IVP] IVP 4 mg, administered: 02/18/2016 7:22:00 PM Benadryl [IVP] IVP 25 mg, administered: 02/18/2016 8:21:00 PM Toradol [IVP] IVP 30 mg, administered: 02/18/2016 8:21:00 PM The following Medications were prescribed to the patient: Tramadol 50 mg: take 1 orally every 8 hours as needed for pain. Dispense twenty (20). No refills. -- Henry Parada Dr. Zofran ODT 4 mg: take 1 orally every 8 hours as needed for nausea and vomiting. Dispense ten (10). No refill. Substitution is permissible. -- Henry Parada Dr. Fioricet: take 1 orally every 6 hours as needed for pain or headache. Dispense twenty (20). No refills. Substitution is permissible. -- Henry Parada Dr.
== END 2016-02-18 21:20 | disposition home or self-care (01) ==
LOC: ED SRH 18:08
DX: R41.82 Altered mental status, unspecified (principal); R41.0 Disorientation, unspecified; D72.829 Elevated white blood cell count, unspecified; R51 Headache; I10 Essential (primary) hypertension; E11.9 Type 2 diabetes mellitus without complications; Z79.4 Long term (current) use of insulin; Z79.899 Other long term (current) drug therapy
CPT/HCPCS: 90004; 90100; 90469; 92235; 93020; 94060; 95059